=== PATIENT | female | born 1990 | race African-American/Black ===

== ENCOUNTER 2016-10-29 08:13 | Emergency (ER) | payer SELFPAY ==
--- NOTE | 2016-10-29 10:14 | ER Document Report ---
ED General - General Chief Complaint: Cough Stated Complaint: COUGH TRAVEL OUTSIDE OF THE [place] IN LAST 30 DAYS: No - HPI Patient complains to provider of: cough Notes: Patient coming in for evaluation of cough states cough ongoing for last 3 days denies any recent travel denies any sick contacts or antibiotics. Patient denies fevers chills nausea vomiting diarrhea denies any production to the cough. - Related Data Allergies/Adverse Reactions: No Known Allergies Allergy (Verified 10/29/16 08:18) Past Medical History - Social History Smoking Status: Never Smoker Chew tobacco use (# tins/day): No Frequency of alcohol use: None Drug Abuse: None Family History: DM, Hypertension, Malignancy Patient has suicidal ideation: No Patient has homicidal ideation: No Pulmonary Medical History: Reports: Hx Pneumonia Renal/ Medical History: Denies: Hx Peritoneal Dialysis Skin Medical History: Reports Hx Cellulitis Surgical Hx: Negative - Immunizations Hx Diphtheria, Pertussis, Tetanus Vaccination: No Review of Systems - Review of Systems Constitutional: No symptoms reported EENT: No symptoms reported Cardiovascular: No symptoms reported Respiratory: Cough Gastrointestinal: No symptoms reported Genitourinary: No symptoms reported Female Genitourinary: No symptoms reported Musculoskeletal: No symptoms reported Skin: No symptoms reported Hematologic/Lymphatic: No symptoms reported Neurological/Psychological: No symptoms reported -: Yes All other systems reviewed and negative Physical Exam - Vital signs Vitals: Temp Pulse Resp BP Pulse Ox 98.2 F 83 18 130/90 H 99 10/29/16 08:19 10/29/16 08:19 10/29/16 08:19 10/29/16 08:19 10/29/16 08:19 Interpretation: Normal - General General appearance: Appears well, Alert - HEENT Head: Normocephalic, Atraumatic Eyes: Normal Pupils: PERRL - Respiratory Respiratory status: No respiratory distress Chest status: Nontender Breath sounds: Normal Chest palpation: Normal - Cardiovascular Rhythm: Regular Heart sounds: Normal auscultation Murmur: No - Abdominal Inspection: Normal Distension: No distension Bowel sounds: Normal Tenderness: Nontender Organomegaly: No organomegaly - Back Back: Normal, Nontender - Extremities General upper extremity: Normal inspection, Nontender, Normal color, Normal ROM , Normal temperature General lower extremity: Normal inspection, Nontender, Normal color, Normal ROM , Normal temperature, Normal weight bearing. No: Gali's sign - Neurological Neuro grossly intact: Yes Cognition: Normal Orientation: AAOx4 [place] Coma Scale Eye Opening: Spontaneous [place] Coma Scale Verbal: Oriented [place] Coma Scale Motor: Obeys Commands [place] Coma Scale Total: 15 Speech: Normal Motor strength normal: LUE, RUE, LLE, RLE Sensory: Normal - Psychological Associated symptoms: Normal affect, Normal mood - Skin Skin Temperature: Warm Skin Moisture: Dry Skin Color: Normal Course - Re-evaluation Re-evalutation: 10/29/16 15:09 Patient's evaluation shows no signs or symptoms of infection. Will start patient on steroids for it with cough patient was educated about use of honey for cough suppression. More likely patient has a viral or allergic reason for her cough patient was encouraged to take a antihistamine - Vital Signs Vital signs: Temp Pulse Resp BP Pulse Ox 97.9 F 72 20 123/82 98 10/29/16 10:27 10/29/16 10:27 10/29/16 10:27 10/29/16 10:27 10/29/16 10:27 Discharge - Discharge Clinical Impression: Cough Condition: Good Disposition: HOME, SELF-CARE Additional Instructions: Examination today reveals no signs of pneumonia or infection requiring antibiotics. More likely her cough is due to weather changes or allergens. To aid in your cough we will start you on a low dose of prednisone for the next few days I also recommend taking an antihistamine. You may take this over-the- counter. Also recommend trying honey as a cough suppressant he may use honey throughout the day to have suture throat may with cough suppression. You may also ask her local pharmacist about [id number] cough medications. Prescriptions: Prednisone [Deltasone 20 mg Tablet] 2 tab PO DAILY 5 Days Forms: Return to Work Referrals: EHSAN STEARNS MD [Primary Care Provider] - Follow up as needed
[2016-10-29 10:28] VITALS: BP 123/82
== END 2016-10-29 10:37 | disposition home or self-care (01) ==
LOC: ER 08:13
DX: R05 Cough (principal)
CPT/HCPCS: 71020; 99283

== ENCOUNTER 2017-04-10 18:18 | Emergency (ER) | payer SELFPAY ==
[2017-04-10 18:24] VITALS: BP 141/64
--- NOTE | 2017-04-10 19:08 | ER Document Report ---
HPI - HPI Patient complains to provider of: lump under left arm Onset: Other Onset/Duration: Gradual Quality of pain: Throbbing Severity: Severe Pain Level: 5 Context: Patient states she has a history of cysts under both axilla. This one started on Thursday, seems to be getting a little larger, and is painful. No drainage. Associated Symptoms: None Exacerbated by: Movement Relieved by: Denies Similar symptoms previously: Yes Recently seen / treated by doctor: No - ROS ROS below otherwise negative: Yes Systems Reviewed and Negative: Yes All other systems reviewed and negative - CONSTITUTIONAL Constitutional: DENIES: Fever - EENT EENT: DENIES: Congestion - NEURO Neurology: DENIES: Headache - CARDIOVASCULAR Cardiovascular: DENIES: Chest pain - RESPIRATORY Respiratory: DENIES: Trouble Breathing - GASTROINTESTINAL Gastrointestinal: DENIES: Abdominal Pain - REPRODUCTIVE Reproductive: DENIES: : - MUSCULOSKELETAL Musculoskeletal: REPORTS: Extremity pain - Lump under left arm - DERM Skin Problems: Rash Past Medical History - General Information source: Patient - Social History Smoking Status: Never Smoker Frequency of alcohol use: None Drug Abuse: None Lives with: Family Family History: DM, Hypertension, Malignancy Pulmonary Medical History: Reports: Hx Pneumonia Skin Medical History: Reports Hx Cellulitis Surgical Hx: Negative - Immunizations Hx Diphtheria, Pertussis, Tetanus Vaccination: No Vertical Provider Document - CONSTITUTIONAL Agree With Documented VS: Yes Exam Limitations: No Limitations General Appearance: WD/WN, Mild Distress - INFECTION CONTROL TRAVEL OUTSIDE OF THE [place] IN LAST 30 DAYS: No - HEENT HEENT: Atraumatic, Normocephalic - RESPIRATORY Respiratory: Breath Sounds Normal, No Respiratory Distress O2 Sat by Pulse Oximetry: 99 - CARDIOVASCULAR Cardiovascular: Regular Rate, Regular Rhythm - GI/ABDOMEN Gastrointestinal: Abdomen Soft - MUSCULOSKELETAL/EXTREMETIES Musculoskeletal/Extremeties: MAEW, Tender - Hard lump under left axilla. - NEURO Level of Consciousness: Awake, Alert, Appropriate - DERM Integumentary: Warm, Dry Notes: Cyst under left axilla is hard on palpation. No erythema or signs of infection. No drainage. Course - Vital Signs Vital signs: Temp Pulse Resp BP Pulse Ox 98.3 F 90 16 141/64 H 99 04/10/17 18:23 04/10/17 18:23 04/10/17 18:23 04/10/17 18:23 04/10/17 18:23 Discharge - Discharge Clinical Impression: Cyst Condition: Good Disposition: HOME, SELF-CARE Additional Instructions: Antibiotics as prescribed [id number] Motrin 3 times a day as needed for pain warm compresses Follow-up with your doctor for recheck, or return if worsens. Prescriptions: Cephalexin [Cephalexin 500 MG Capsule] 1 cap PO QID #28 capsule Hydrocodone/Acetaminophen [[place] 5-325 mg Tablet] 1 tab PO PRN PRN #15 tablet PRN Reason: Sulfamethoxazole/Trimethoprim [Bactrim Ds Tablet] 1 each PO BID #20 tablet
[2017-04-10] MEDS ORDERED: HYDROCODONE/ACETAMINOPHEN 5-325 MG TABLET PO ONE (19:10)
== END 2017-04-10 19:20 | disposition home or self-care (01) ==
LOC: ER 18:18
DX: L72.8 Other follicular cysts of the skin and subcutaneous tissue (principal); R22.32 Localized swelling, mass and lump, left upper limb
CPT/HCPCS: 99282

== ENCOUNTER 2017-04-23 08:53 | Emergency (ER) | payer SELFPAY ==
[2017-04-23 08:59] VITALS: BP 131/74
[2017-04-23] MEDS ORDERED: FAMOTIDINE 20 MG TABLET PO ONE (09:19)
[2017-04-23] MEDS ORDERED: DIPHENHYDRAMINE HCL 50 MG CAPSULE PO ONE (09:19)
[2017-04-23] MEDS ORDERED: PREDNISONE 20 MG TABLET PO ONE (09:19)
--- NOTE | 2017-04-23 09:21 | ER Document Report ---
HPI - HPI Patient complains to provider of: Skin rash Onset: Yesterday Onset/Duration: Gradual Quality of pain: Burning Pain Level: 4 Context: Patient complains of pruritic skin rash that started yesterday. Patient denies any new foods, lotions or detergents. Patient denies any difficulty breathing or swallowing. Associated Symptoms: Other - Skin rash Exacerbated by: Denies Relieved by: Denies Similar symptoms previously: No Recently seen / treated by doctor: No - ROS ROS below otherwise negative: Yes Systems Reviewed and Negative: Yes All other systems reviewed and negative - CONSTITUTIONAL Constitutional: DENIES: Fever - RESPIRATORY Respiratory: DENIES: Coughing - GASTROINTESTINAL Gastrointestinal: DENIES: Nausea, Patient vomiting - REPRODUCTIVE Reproductive: DENIES: : - DERM Skin Color: Normal Skin Problems: Rash Past Medical History - General Information source: Patient - Social History Smoking Status: Never Smoker Frequency of alcohol use: None Drug Abuse: None Occupation: Daycare provider Family History: DM, Hypertension, Malignancy Pulmonary Medical History: Reports: Hx Pneumonia Renal/ Medical History: Denies: Hx Peritoneal Dialysis Skin Medical History: Reports Hx Cellulitis Surgical Hx: Negative - Immunizations Hx Diphtheria, Pertussis, Tetanus Vaccination: No Vertical Provider Document - CONSTITUTIONAL Agree With Documented VS: Yes Exam Limitations: No Limitations General Appearance: WD/WN, No Apparent Distress - INFECTION CONTROL TRAVEL OUTSIDE OF THE [place] IN LAST 30 DAYS: No - HEENT HEENT: Atraumatic, Normal ENT Exam, Normocephalic Notes: No angioedema - NECK Neck: Normal Inspection, Supple - RESPIRATORY Respiratory: Breath Sounds Normal, No Respiratory Distress, Chest Non-Tender O2 Sat by Pulse Oximetry: 100 - CARDIOVASCULAR Cardiovascular: Regular Rate, Regular Rhythm, No Murmur - MUSCULOSKELETAL/EXTREMETIES Musculoskeletal/Extremeties: MAEW - NEURO Level of Consciousness: Awake, Alert, Appropriate Motor/Sensory: No Motor Deficit - DERM Integumentary: Warm, Dry, Rash - Scattered erythematous rash concerning for urticaria distributed to trunk, extremities and face Course - Vital Signs Vital signs: Temp Pulse Resp BP Pulse Ox 97.3 F 79 16 131/74 H 100 04/23/17 08:58 04/23/17 08:58 04/23/17 08:58 04/23/17 08:58 04/23/17 08:58 Discharge - Discharge Clinical Impression: Allergic reaction Qualifiers: Encounter type: initial encounter Qualified Code(s): T78.40XA - Allergy, unspecified, initial encounter Condition: Stable Disposition: HOME, SELF-CARE Additional Instructions: Return immediately for any new or worsening symptoms Followup with your primary care provider, call tomorrow to make a followup appointment Take Benadryl [id number] to help with her symptoms ACUTE ALLERGIC REACTION: Your symptoms are due to an allergic reaction. Allergy can cause hives, swelling of the hands, feet, and face, hoarseness, and difficulty swallowing or breathing. It may be due to exposure to medication, animal dander, foods, infection, or insect bites. Medication is a common cause, even when prior use of this same medication caused no problems. Acute treatment may include adrenalin and antihistamines. Usually, the specific allergic agent can't be identified unless repeated episodes occur. Home treatment includes the following: (1) Stop any suspicious medications. This will be discussed with you. (2) Oral antihistamines for the next four to five days. Example, diphenhydramine (Benadryl) every four hours. (3) You may also use cimetidine (Tagamet), ranitidine (Zantac), or famotidine ( Pepcid) every four hours if diphenhydramine is not controlling itching and hives. (4) Avoid aspirin until the hives completely disappear. (5) Avoid hot baths or showers until the hives are completely gone. Call the doctor if faintness, difficulty swallowing, tightness in the chest , or wheezing occurs. STEROID MEDICATION: You have been given a medicine of the cortisone/steroid class. This medication is used to control inflammation or allergy. It is usually only given for a short period of time, until the acute process subsides. There are usually no side effects from short-term use of cortisone-like medications. Some persons feel an increased sense of well-being and are not sleepy at bedtime. Long-term use of cortisone medications is best avoided, unless required for a severe condition. If your condition does not remit, or relapses after the course of corticosteroid medication, you should consult your physician. ACID-SUPPRESSING MEDICATION: You have a prescription for medicine which reduces the stomach's secretion of acid. Examples include Zantac, Tagament, and Pepcid. These drugs are often used to allow healing of ulcers or esophagitis. They may be needed to prevent recurrence of ulcers in some patients, or to prevent damage from acid reflux in the esophagus. Take all medication as prescribed, even after the pain is gone. Regular antacids may be added as needed if you have symptoms while taking this medicine. These medications sometimes are prescribed for allergic reactions because they have anti-histaminic effects and relieve the rash and itching of the reaction. There are usually no side effects from this medication. But, in rare cases and particularly in the elderly, serious problems can occur. Contact your doctor if there is fever, rash, hallucinations, confusion, or unusual bruising. Contact your doctor at once if you develop lightheadedness, black or bloody stool, or bloody vomitus. ANTIHISTAMINES: An antihistamine has been given and/or prescribed to control your symptoms. Antihistamines are used for many reasons, including itching, watering eyes, runny nose, allergic swelling, hives, and insect stings. Antihistamines may cause drowsiness, especially with the first dose. Do not operate machinery or drive while under the effects of the medication. Other common side effects include dry mouth and eyes. In older persons, antihistamines can occasionally cause urinary retention, constipation, and trouble focusing the eyes. Do not combine the medication with alcohol, or with any other medication without talking to your doctor. USE OF DIPHENHYDRAMINE: The use of diphenhydramine (Benadryl) has been recommended to control allergic symptoms. The 25 mg strength is available over- the-counter, as well as the elixir. This antihistamine is used for many symptoms. It's useful for itching, watering eyes and nose, allergic swelling, hives, and insect stings. The medication can be repeated four times daily. Age Elixir (12.5 mg/tsp) 25 mg pill 2-3 yr 1/2 tsp 4-8 yr 1 tsp 9-14 yr 2 tsp one tab adult 1-2 tabs Antihistamines may cause drowsiness, especially with the first dose. Do not operate machinery or drive while under the effects of the medication. Do not combine the medication with alcohol, or with any other medication without talking to your doctor. FOLLOW-UP CARE: If you have been referred to a physician for follow-up care, call the physician s office for an appointment as you were instructed or within the next two days. If you experience worsening or a significant change in your symptoms, notify the physician immediately or return to the Emergency Department at any time for re-evaluation. Prescriptions: Famotidine [Pepcid 20 mg Tablet] 20 mg PO BID #12 tablet Prednisone [Deltasone 20 mg Tablet] 3 tab PO DAILY 4 Days tablet Forms: Return to Work Referrals: [facility] [Provider Group] - Follow up as needed
== END 2017-04-23 09:51 | disposition home or self-care (01) ==
LOC: ER 08:53
DX: T78.40XA Allergy, unspecified, initial encounter (principal); R21 Rash and other nonspecific skin eruption; X58.XXXA Exposure to other specified factors, initial encounter
CPT/HCPCS: 99282; J7512

== ENCOUNTER 2017-07-03 14:17 | Emergency (ER) | payer MEDICAID ==
[2017-07-03] MEDS ORDERED: IBUPROFEN 600 MG TABLET PO ONE (14:32)
--- NOTE | 2017-07-03 14:34 | ER Document Report ---
ED Medical Screen (RME) - General Chief Complaint: Abdominal Pain Stated Complaint: STOMACH PAIN Time Seen by Provider: 07/03/17 14:31 Mode of Arrival: Wheelchair Information source: Patient TRAVEL OUTSIDE OF THE [place] IN LAST 30 DAYS: No - HPI Patient complains to provider of: Pelvic pain Onset: Other - pt is a approx 14 weeks along seen here earlier this week and found to have ovarian cyst. States pain has gotten worse and is having some N and Vom. Has need spoken to her OB about this - Related Data Allergies/Adverse Reactions: No Known Allergies Allergy (Verified 07/03/17 14:29) Past Medical History Pulmonary Medical History: Reports: Hx Pneumonia Renal/ Medical History: Denies: Hx Peritoneal Dialysis Skin Medical History: Reports Hx Cellulitis - Immunizations Hx Diphtheria, Pertussis, Tetanus Vaccination: No Physical Exam - Vital signs Vitals: Temp Pulse Resp BP Pulse Ox 98.2 F 100 20 126/90 H 99 07/03/17 14:23 07/03/17 14:23 07/03/17 14:23 07/03/17 14:23 07/03/17 14:23 Course - Vital Signs Vital signs: Temp Pulse Resp BP Pulse Ox 98.2 F 100 20 126/90 H 99 07/03/17 14:23 07/03/17 14:23 07/03/17 14:23 07/03/17 14:23 07/03/17 14:23
[2017-07-03 15:27] LABS: APPEARANCE,URINE CLOUDY; BILIRUBIN,URINE NEGATIVE (NEGATIVE); GLUCOSE, URINE NEGATIVE (NEGATIVE); KETONES,URINE 80 mg/dL (NEGATIVE); LEUKOCYTE ESTERASE,URINE TRACE (NEGATIVE); NITRITE,URINE NEGATIVE (NEGATIVE); PROTEIN,URINE 30 mg/dL (NEGATIVE); URINE SPECIFIC GRAVITY 1.035
[2017-07-03 15:29] LABS: ABSOLUTE LYMPHOCYTES (AUTO) 2.1 10^3/uL (0.5-4.7); ABSOLUTE MONOCYTES (AUTO) 0.5 10^3/uL (0.1-1.4); ABSOLUTE NEUT (AUTO) 7.1 10^3/uL (1.7-8.2); BASOPHILS % (AUTO) 0.5 % (0-2); EOSINOPHILS % (AUTO) 0.5 % (0-6); HEMATOCRIT 40.5 % (36.0-47.0); HGB HCT DIFFERENCE 1.5; MEAN CORPUSCULAR HEMOGLOBIN 29.9 pg (27.0-33.4); MEAN CORPUSCULAR HGB CONC 34.5 g/dL (32.0-36.0); MEAN CORPUSCULAR VOLUME 87 fl (80-97); MONOCYTES % (AUTO) 5.4 % (3-13); RED BLOOD COUNT 4.67 10^6/uL (3.72-5.28); RED CELL DISTRIBUTION WIDTH 13.7 % (11.5-14.0); SEGMENTED NEUTROPHILS % (AUTO) 72.6 % (42-78); WHITE BLOOD COUNT 9.8 10^3/uL (4.0-10.5)
[2017-07-03 15:52] LABS: ALANINE AMINOTRANSFERASE 36 U/L (9-52); ALBUMIN 4.8 g/dL (3.5-5.0); ALKALINE PHOSPHATASE 62 U/L (38-126); ANION GAP 13 (5-19); ASPARTATE AMINO TRANSFERASE 16 U/L (14-36); BILIRUBIN,DIRECT 0.3 mg/dL (0.0-0.4); BILIRUBIN,TOTAL 0.8 mg/dL (0.2-1.3); BLOOD UREA NITROGEN 11 mg/dL (7-20); CALCIUM 10.1 mg/dL (8.4-10.2); CARBON DIOXIDE 24 mmol/L (22-30); CHLORIDE 102 mmol/L (98-107); CREATININE RESULT 0.71 mg/dL (0.52-1.25); GLUCOSE 85 mg/dL (75-110); SODIUM 139.4 mmol/L (137-145); TOTAL PROTEIN 8.4 g/dL (6.3-8.2)
[2017-07-03] MEDS ORDERED: MORPHINE SULFATE 10 MG/ML INJ IV ONE (16:02)
--- NOTE | 2017-07-03 16:02 | ER Document Report ---
ED GI/ - General Chief Complaint: Abdominal Pain Stated Complaint: STOMACH PAIN Time Seen by Provider: 07/03/17 14:31 Mode of Arrival: Wheelchair Information source: Patient TRAVEL OUTSIDE OF THE [place] IN LAST 30 DAYS: No - HPI Patient complains to provider of: Pelvic pain Onset: Other - 5 days Timing/Duration: Persistent Quality of pain: Achy, Dull, Fullness Severity at maximum: Moderate Severity in ED: Moderate Location: Pelvis Vaginal bleeding (Compared to normal period): None Menstrual period history: Associated symptoms: Nausea, Vomiting Exacerbated by: Denies Relieved by: Denies Similar symptoms previously: Yes Recently seen / treated by doctor: Yes Notes: 07/03/17 19:01 Patient is a 26-year-old female presenting to the emergency room complaining of ongoing pelvic pain since Thursday, she is approximately 14 weeks , she is with no previous related complications, she has been seen at [facility] but not since her most recent visit to the emergency room where she was diagnosed with a 5 cm cyst on her left ovary, she was prescribed Percocet and Zofran and advised to follow-up at [facility] as an outpatient, she did not have the chance to do that yet and states that the Percocet makes her sick and she is unable to tolerate it , she reports some nausea and vomiting, denies any pain or injury, no vaginal bleeding or discharge, denies dysuria, no fever or chills - Related Data Allergies/Adverse Reactions: No Known Allergies Allergy (Verified 07/03/17 14:29) Past Medical History - General Information source: Patient - Social History Smoking Status: Never Smoker Family History: DM, Hypertension, Malignancy Patient has suicidal ideation: No Patient has homicidal ideation: No Pulmonary Medical History: Reports: Hx Pneumonia Renal/ Medical History: Denies: Hx Peritoneal Dialysis Skin Medical History: Reports Hx Cellulitis - Immunizations Hx Diphtheria, Pertussis, Tetanus Vaccination: No Review of Systems - Review of Systems Constitutional: No symptoms reported EENT: No symptoms reported Cardiovascular: No symptoms reported Respiratory: No symptoms reported Gastrointestinal: No symptoms reported Genitourinary: No symptoms reported Female Genitourinary: See HPI Musculoskeletal: No symptoms reported Skin: No symptoms reported Hematologic/Lymphatic: No symptoms reported Neurological/Psychological: No symptoms reported -: Yes All other systems reviewed and negative Physical Exam - Vital signs Vitals: Temp Pulse Resp BP Pulse Ox 98.2 F 100 20 126/90 H 99 07/03/17 14:23 07/03/17 14:23 07/03/17 14:23 07/03/17 14:23 07/03/17 14:23 Interpretation: Normal - General General appearance: Appears well, Alert - HEENT Head: Normocephalic, Atraumatic Eyes: Normal Pupils: PERRL - Respiratory Respiratory status: No respiratory distress Chest status: Nontender Breath sounds: Normal Chest palpation: Normal - Cardiovascular Rhythm: Regular Heart sounds: Normal auscultation Murmur: No - Abdominal Inspection: Gravid female Distension: No distension Bowel sounds: Normal Tenderness: Tender Organomegaly: No organomegaly - Back Back: Normal, Nontender - Extremities General upper extremity: Normal inspection, Nontender, Normal color, Normal ROM , Normal temperature General lower extremity: Normal inspection, Nontender, Normal color, Normal ROM , Normal temperature, Normal weight bearing. No: Gali's sign - Neurological Neuro grossly intact: Yes Cognition: Normal Orientation: AAOx4 [place] Coma Scale Eye Opening: Spontaneous [place] Coma Scale Verbal: Oriented [place] Coma Scale Motor: Obeys Commands [place] Coma Scale Total: 15 Speech: Normal Motor strength normal: LUE, RUE, LLE, RLE Sensory: Normal - Psychological Associated symptoms: Normal affect, Normal mood - Skin Skin Temperature: Warm Skin Moisture: Dry Skin Color: Normal Course - Re-evaluation Re-evalutation: 07/03/17 23:58 Lab and imaging findings were discussed with patient at bedside, ultrasound report today shows a 5 cm cyst on the right ovary, however 3 days ago the ultrasound reported to be on the left ovary, I did place a call to the generator technician to confirm that she was in fact marking the proper side, which she confirms, I did then place a call to the radiologist and asked her to review both studies to confirm which side the ovary had a cyst, regardless symptoms are likely related to increasing girth from , as well as sizable ovarian cyst, patient was provided with additional pain medication, and instructions to follow-up at [facility] which she has not yet done since being seen in this department 3 days ago, patient was advised to take nausea medication 20-30 minutes prior to taking pain medication to reduce her risk of getting upset stomach from the pain medication, she was advised to return if any additional concerns, patient acknowledges understanding and agreement with this plan - Vital Signs Vital signs: Temp Pulse Resp BP Pulse Ox 98.5 F 85 22 H 125/74 100 07/03/17 19:08 07/03/17 19:08 07/03/17 19:08 07/03/17 19:08 07/03/17 19:08 - Laboratory Result Diagrams: 07/03/17 14:50 07/03/17 14:50 Laboratory results interpreted by me: 07/03/17 07/03/17 14:46 14:50 Total Protein 8.4 H Beta HCG, Quant 44351.00 H Urine Protein 30 H Urine Ketones 80 H Urine Urobilinogen 2.0 H Ur Leukocyte Esterase TRACE H Urine Ascorbic Acid 40 H - Diagnostic Test Radiology reviewed: Image reviewed, Reports reviewed Discharge - Discharge Clinical Impression: Pelvic pain affecting Qualifiers: Trimester: second trimester Qualified Code(s): O26.892 - Other specified related conditions, second trimester UTI (urinary tract infection) Qualifiers: Urinary tract infection type: acute cystitis Hematuria presence: without hematuria Qualified Code(s): N30.00 - Acute cystitis without hematuria Ovarian cyst Qualifiers: Laterality: left Qualified Code(s): N83.202 - Unspecified ovarian cyst, left side Condition: Stable Disposition: HOME, SELF-CARE Instructions: Nitrofurantoin ([facility]), Urinary Tract Infection ([facility]) Additional Instructions: Follow up with your primary care provider and [employer] in one to 2 days. Return to the emergency room immediately if symptoms worsen or any additional concerns. Prescriptions: Metoclopramide HCl [Reglan 10 mg Tablet] 1 - 2 tab PO ASDIR PRN #25 tablet PRN Reason: Nitrofurantoin/Nitrofuran Mac [Macrobid 100 mg Capsule] 100 mg PO BID #20 capsule Referrals: EHSAN STEARNS MD [Primary Care Provider] - Follow up as needed
--- NOTE | 2017-07-03 18:08 | RADIOLOGY REPORT (SQ) ---
EXAM DESCRIPTION: U/S OB LIMITED COMPLETED DATE/TIME: 07/03/2017 5:54 pm REASON FOR STUDY: worsening pelvic pain COMPARISON: 08/14/2016 TECHNIQUE: Limited transabdominal grayscale ultrasound for evaluation of specific requested obstetri hemanth parameters. LIMITATIONS: None. FINDINGS: CERVICAL LENGTH: 3.3 cm Closed. MARIPOSA: Subjectively adequate. Single deepest pocket 4.6 cm. FHR: 155 beats per minute. PRESENTATION: Cephalic. OTHER: A 5 cm hypoechoic focus within the right adnexa is favored to represent residual corpus luteum , although an hemorrhagic cyst may have a similar appearance. IMPRESSION: LIMITED OBSTETRICAL ULTRASOUND WITH MEASURED PARAMETERS DELINEATED ABOVE. Trimester of : Third trimester - 28 weeks to delivery. TECHNICAL DOCUMENTATION: JOB ID: [id number] [employer]- All Rights Reserved
[2017-07-03] MEDS ORDERED: NITROFURANTOIN MONOHYD/M-CRYST 100 MG CAPSULE PO ONE (18:25)
[2017-07-03 19:11] VITALS: BP 125/74
== END 2017-07-03 19:11 | disposition home or self-care (01) ==
LOC: ER 14:17
DX: O26.892 Other specified pregnancy related conditions, second trimester (principal); N30.00 Acute cystitis without hematuria; O34.82 Maternal care for other abnormalities of pelvic organs, second trimester; N83.202 Unspecified ovarian cyst, left side; R10.2 Pelvic and perineal pain; Z3A.14 14 weeks gestation of pregnancy
CPT/HCPCS: 99284; 96374; 36415; 87086; 84702; 85025; 80053; 81001; 76815; J3490 ×2; J2270; J8499

== ENCOUNTER 2017-07-31 19:01 | Emergency (ER) | payer MEDICAID ==
[2017-07-31] MEDS ORDERED: ACETAMINOPHEN 325 MG TABLET PO ONE (20:01)
[2017-07-31] MEDS ORDERED: ONDANSETRON 4 MG TAB.RAPDIS PO ONE (20:04)
--- NOTE | 2017-07-31 20:04 | ER Document Report ---
ED Medical Screen (RME) - General Chief Complaint: Abdominal Pain Stated Complaint: ABDOMINAL PAIN Time Seen by Provider: 07/31/17 19:55 Notes: 26-year-old female approximately 19 weeks gestation per her report here with complaints of lower abdominal pain and vomiting that started several hours ago. She states that the pain feels the same as the pain she had last month when she was seen here in the emergency department. At that time, her ultrasound showed a 5.2 cm left ovarian cyst but no torsion however there was concern for increased risk of torsion. She has no prior history of torsion. She took some Tylenol however it has been 5 hours since last dose. Denies vaginal bleeding discharge fevers chills diarrhea. EXAM Mild to moderate right greater than left lower quadrant tenderness No peritoneal signs TRAVEL OUTSIDE OF THE [place] IN LAST 30 DAYS: No - Related Data Allergies/Adverse Reactions: No Known Allergies Allergy (Verified 07/31/17 19:03) Past Medical History - Social History Chew tobacco use (# tins/day): No Frequency of alcohol use: None Drug Abuse: None Pulmonary Medical History: Reports: Hx Pneumonia Renal/ Medical History: Denies: Hx Peritoneal Dialysis Skin Medical History: Reports Hx Cellulitis - Immunizations Hx Diphtheria, Pertussis, Tetanus Vaccination: No Physical Exam - Vital signs Vitals: Temp Pulse Resp BP Pulse Ox 98.6 F 91 16 126/76 H 98 07/31/17 19:33 07/31/17 19:33 07/31/17 19:33 07/31/17 19:33 07/31/17 19:33 Course - Vital Signs Vital signs: Temp Pulse Resp BP Pulse Ox 98.6 F 91 16 126/76 H 98 07/31/17 19:33 07/31/17 19:33 07/31/17 19:33 07/31/17 19:33 07/31/17 19:33
--- NOTE | 2017-07-31 21:06 | RADIOLOGY REPORT (SQ) ---
EXAM DESCRIPTION: U/S NON OB PEL TV W/DOPPLER COMPLETED DATE/TIME: 07/31/2017 8:42 pm REASON FOR STUDY: lower abd pain and 5cm cyst; eval for torsion COMPARISON: Multiple prior ultrasounds TECHNIQUE: Dynamic and static grayscale images acquired of the pelvis via transvaginal approach and recorded on PACS. Additional selected color Doppler and spectral images recorded. LIMITATIONS: None. FINDINGS: UTERUS: Gravid ENDOMETRIAL STRIPE: Not applicable CERVIX: No nabothian cysts. RIGHT OVARY: Not visualized. LEFT OVARY: 5 cm cyst. LEFT OVARY DOPPLER: Normal arterial vascular flow without evidence for torsion. FREE FLUID: None noted. OTHER: heart rate 144 beats per minute. Vertex position. MEASUREMENTS: UTERUS: Gravid ENDOMETRIAL STRIPE: Not applicable RIGHT OVARY: Not visualized. LEFT OVARY: 7.2 x 5.86.0 cm IMPRESSION: Large left ovarian cyst. No evidence for torsion. TECHNICAL DOCUMENTATION: JOB ID: [id number] [employer]- All Rights Reserved
[2017-07-31] MEDS ORDERED: METOCLOPRAMIDE HCL INJ/PF 10 MG/2 ML SDV IV ONE (22:20)
[2017-07-31] MEDS: NORMAL SALINE 1000 ML 1,000 ML IV PRN ×2 (22:36→23:52)
[2017-07-31 23:11] LABS: ABSOLUTE EOSINOPHILS # (AUTO) 0.1 10^3/uL (0.0-0.6); ABSOLUTE LYMPHOCYTES (AUTO) 2.2 10^3/uL (0.5-4.7); ABSOLUTE MONOCYTES (AUTO) 0.5 10^3/uL (0.1-1.4); ABSOLUTE NEUT (AUTO) 6.6 10^3/uL (1.7-8.2); BASOPHILS % (AUTO) 0.4 % (0-2); HEMATOCRIT 36.3 % (36.0-47.0); HEMOGLOBIN 12.4 g/dL (12.0-15.5); HGB HCT DIFFERENCE 0.9; LYMPHOCYTES % (AUTO) 23.6 % (13-45); MEAN CORPUSCULAR HEMOGLOBIN 30.2 pg (27.0-33.4); MEAN CORPUSCULAR HGB CONC 34.2 g/dL (32.0-36.0); MEAN CORPUSCULAR VOLUME 88 fl (80-97); MONOCYTES % (AUTO) 5.1 % (3-13); RED BLOOD COUNT 4.12 10^6/uL (3.72-5.28); RED CELL DISTRIBUTION WIDTH 13.4 % (11.5-14.0); SEGMENTED NEUTROPHILS % (AUTO) 69.9 % (42-78); WHITE BLOOD COUNT 9.4 10^3/uL (4.0-10.5)
[2017-07-31 23:18] LABS: APPEARANCE,URINE CLOUDY; BILIRUBIN,URINE NEGATIVE (NEGATIVE); GLUCOSE, URINE NEGATIVE (NEGATIVE); KETONES,URINE NEGATIVE (NEGATIVE); LEUKOCYTE ESTERASE,URINE SMALL (NEGATIVE); NITRITE,URINE NEGATIVE (NEGATIVE); PROTEIN,URINE 30 mg/dL (NEGATIVE); URINE SPECIFIC GRAVITY 1.036
[2017-07-31 23:23] LABS: ANION GAP 10 (5-19); BLOOD UREA NITROGEN 14 mg/dL (7-20); CALCIUM 9.2 mg/dL (8.4-10.2); CARBON DIOXIDE 25 mmol/L (22-30); CHLORIDE 103 mmol/L (98-107); CREATININE RESULT 0.81 mg/dL (0.52-1.25); GLUCOSE 89 mg/dL (75-110); POTASSIUM 3.9 mmol/L (3.6-5.0); SODIUM 137.8 mmol/L (137-145)
[2017-07-31] MEDS ORDERED: GLYCERIN (ADULT) SUPP.RECT PR ONE (23:58)
--- NOTE | 2017-08-01 | ER Document Report ---
ED General - General Chief Complaint: Abdominal Pain Stated Complaint: ABDOMINAL PAIN Time Seen by Provider: 07/31/17 19:55 TRAVEL OUTSIDE OF THE [place] IN LAST 30 DAYS: No - HPI Patient complains to provider of: Lower abdominal pain Notes: Patient coming in for evaluation lower abdominal pain. Patient states ongoing starting this morning. Patient states nauseous associated with the pain. Patient is approximately 19-20 weeks . Patient is a . Denies any vaginal discharge or vaginal bleeding. Patient states most of the pain to the lower abdomen right greater than left. Patient states [facility]. Patient states she is currently on nausea medication for the however the nausea today is worse than it has been in the past. Denies any fevers chills diarrhea chest pain. Denies any recent travel or recent antibiotics. Patient is resting comfortably upon my evaluation patient does admit that she has not had a bowel movement within 1 week. Patient states this is normal for her. - Related Data Allergies/Adverse Reactions: No Known Allergies Allergy (Verified 07/31/17 19:03) Past Medical History - Social History Smoking Status: Never Smoker Chew tobacco use (# tins/day): No Frequency of alcohol use: None Drug Abuse: None Family History: DM, Hypertension, Malignancy Patient has suicidal ideation: No Patient has homicidal ideation: No Pulmonary Medical History: Reports: Hx Pneumonia Renal/ Medical History: Denies: Hx Peritoneal Dialysis Skin Medical History: Reports Hx Cellulitis - Immunizations Hx Diphtheria, Pertussis, Tetanus Vaccination: No Review of Systems - Review of Systems Constitutional: No symptoms reported EENT: No symptoms reported Cardiovascular: No symptoms reported Respiratory: No symptoms reported Gastrointestinal: Abdominal pain Genitourinary: No symptoms reported Female Genitourinary: No symptoms reported Musculoskeletal: No symptoms reported Skin: No symptoms reported Hematologic/Lymphatic: No symptoms reported Neurological/Psychological: No symptoms reported Physical Exam - Vital signs Vitals: Temp Pulse Resp BP Pulse Ox 98.6 F 91 16 126/76 H 98 07/31/17 19:33 07/31/17 19:33 07/31/17 19:33 07/31/17 19:33 07/31/17 19:33 Interpretation: Normal - General General appearance: Appears well, Alert - HEENT Head: Normocephalic, Atraumatic Eyes: Normal Pupils: PERRL - Respiratory Respiratory status: No respiratory distress Chest status: Nontender Breath sounds: Normal Chest palpation: Normal - Cardiovascular Rhythm: Regular Heart sounds: Normal auscultation Murmur: No - Abdominal Inspection: Normal Distension: No distension Bowel sounds: Normal Tenderness: Tender - Mild diffuse lower tenderness. No guarding or rebound Organomegaly: No organomegaly - Back Back: Normal, Nontender - Extremities General upper extremity: Normal inspection, Nontender, Normal color, Normal ROM , Normal temperature General lower extremity: Normal inspection, Nontender, Normal color, Normal ROM , Normal temperature, Normal weight bearing. No: Gali's sign - Neurological Neuro grossly intact: Yes Cognition: Normal Orientation: AAOx4 Lud[place] Coma Scale Eye Opening: Spontaneous Chantal Coma Scale Verbal: Oriented Lud[place] Coma Scale Motor: Obeys Commands Chantal Coma Scale Total: 15 Speech: Normal Motor strength normal: LUE, RUE, LLE, RLE Sensory: Normal - Psychological Associated symptoms: Normal affect, Normal mood - Skin Skin Temperature: Warm Skin Moisture: Dry Skin Color: Normal Course - Re-evaluation Re-evalutation: 08/01/17 00:52 The patient presents with abdominal pain without signs of peritonitis or other life-threatening or serious etiology. The patient appears stable for discharge and has been instructed to return immediately if the symptoms worsen in any way , or in 8-12hr if not improved for re-evaluation. The patient has been instructed to return if the symptoms worsen or change in any way. Ultrasound negative for acute pathology shows retained cyst. Patient was given IV fluids. Possibly related constipation patient was encouraged take stool softeners and/ or suppositories. We will give Reglan for nausea. 08/01/17 00:52 - Vital Signs Vital signs: Temp Pulse Resp BP Pulse Ox 98.6 F 91 16 126/76 H 98 07/31/17 19:33 07/31/17 19:33 07/31/17 19:33 07/31/17 19:33 07/31/17 19:33 - Laboratory Result Diagrams: 07/31/17 22:37 07/31/17 22:37 Laboratory results interpreted by me: 07/31/17 22:37 Urine Protein 30 H Urine Urobilinogen 2.0 H Ur Leukocyte Esterase SMALL H Discharge - Discharge Clinical Impression: RLQ abdominal pain, Ovarian cyst, left Constipation Qualifiers: Constipation type: unspecified constipation type Qualified Code(s): K59.00 - Constipation, unspecified Condition: Good Disposition: HOME, SELF-CARE Instructions: Abdominal Pain ([facility]), Constipation ([facility]), Observation for Appendicitis ([facility]), Ovarian Cyst ([facility]), Pelvic Pain in ([facility]) Additional Instructions: Your evaluation today does not reveal any critical signs for your right lower quadrant abdominal pain. You do not have a white count your examination is not consistent with appendicitis however I would continue to monitor for this possible etiology. Return if you develop a fever or worsening symptoms. Your ultrasound shows that the fetus heart rate is 144 within normal limits. He do have a left ovarian cyst that remains. Can have your BELT CHANGER continue to follow this ovarian cyst. Your pain can be due to constipation. Would recommend using the suppository that we gave you here in ER also taking [id number] stool softeners. Please make sure you drink plenty water as this will aid with your constipation. Prescriptions: Docusate Sodium [Colace 100 mg Capsule] 100 mg PO DAILY #30 capsule Glycerin 1 each RC DAILY #20 supp.rect Metoclopramide HCl [Reglan] 5 mg PO Q6 #20 tablet Referrals: EHSAN STEARNS MD [Primary Care Provider] - Follow up as needed
[2017-08-01] MEDS ORDERED: GLYCERIN (ADULT) SUPP.RECT PR ONE (00:46)
[2017-08-01 01:05] VITALS: BP 100/56
== END 2017-08-01 01:03 | disposition home or self-care (01) ==
LOC: ER 19:01
DX: N83.202 Unspecified ovarian cyst, left side (principal); R10.31 Right lower quadrant pain; Z3A.19 19 weeks gestation of pregnancy
CPT/HCPCS: 99284; 96361; 96374; 36415; 85025; 80048; 81001; 76830; 93976; J3490; S0119; J2765; J7030

== ENCOUNTER 2017-12-18 09:36 | Outpatient (CLI) | payer MEDICAID ==
[2017-12-18 10:13] LABS: ABSOLUTE LYMPHOCYTES (AUTO) 1.7 10^3/uL (0.5-4.7); ABSOLUTE MONOCYTES (AUTO) 0.4 10^3/uL (0.1-1.4); BASOPHILS % (AUTO) 0.2 % (0-2); EOSINOPHILS % (AUTO) 0.7 % (0-6); HEMATOCRIT 34.7 % (36.0-47.0); HEMOGLOBIN 11.6 g/dL (12.0-15.5); LYMPHOCYTES % (AUTO) 27.7 % (13-45); MEAN CORPUSCULAR HEMOGLOBIN 28.7 pg (27.0-33.4); MEAN CORPUSCULAR HGB CONC 33.4 g/dL (32.0-36.0); MEAN CORPUSCULAR VOLUME 86 fl (80-97); PLATELET COUNT 180 10^3/uL (150-450); RED BLOOD COUNT 4.03 10^6/uL (3.72-5.28); RED CELL DISTRIBUTION WIDTH 13.3 % (11.5-14.0); SEGMENTED NEUTROPHILS % (AUTO) 64.4 % (42-78); TOTAL CELLS COUNTED % (AUTO) 100 %; WHITE BLOOD COUNT 6.2 10^3/uL (4.0-10.5)
--- NOTE | 2017-12-18 10:22 | Non Stress Test Report ---
Non Stress Test Datetime Report Generated by CPN: 12/18/2017 10:21 DEMOGRAPHIC EGA NST: 39.1 INDICATION Indication for Study: Decreased Movement; Ordered by Provider Indication for Study: Chronic Hypertension Indication for Study (NST) Other: GHTN VITAL SIGNS Temperature - NST: 98.2 NBPSYS NST: 134 NBPDIA NST: 83 MONITORING Monitor Explained: Monitor Explained; Test Explained; Patient Verbalized Understanding Monitor Explained: Monitor Explained; Test Explained; Patient Verbalized Understanding Time on Monitor: 12/18/2017 09:50 Time on Monitor: 12/18/2017 09:49 Time off Monitor: 12/18/2017 10:20 Time off Monitor: 12/18/2017 10:09 NST Duration: 30 NST INTERVENTIONS NST Interventions: PO Hydration; Reposition Patient NST Interventions: PO Hydration Physician Notified NST: Dr Mishra BABY A: [id number] BABY A Movement : Present Movement : Present Contraction Frequency : irr FHR Baseline : 130 Accelerations : 15X15 Accelerations : 15X15 Decelerations : None Variability : Moderate 6-25bpm Variability : Moderate 6-25bpm NST Review: Meets Criteria for Reactive NST NST Review: Meets Criteria for Reactive NST NST Review and Verified By : Reji Cardona [facility] NST Results: Reactive NST Results: Reactive NST REPORT Report Trigger: Send Report
[2017-12-18 10:26] LABS: ALANINE AMINOTRANSFERASE 23 U/L (9-52); ALBUMIN 3.2 g/dL (3.5-5.0); ALKALINE PHOSPHATASE 102 U/L (38-126); ANION GAP 9 (5-19); ASPARTATE AMINO TRANSFERASE 16 U/L (14-36); BILIRUBIN,DIRECT 0.2 mg/dL (0.0-0.4); BILIRUBIN,TOTAL 0.2 mg/dL (0.2-1.3); BLOOD UREA NITROGEN 5 mg/dL (7-20); CARBON DIOXIDE 25 mmol/L (22-30); CHLORIDE 106 mmol/L (98-107); GLUCOSE 82 mg/dL (75-110); LDH 347 U/L (313-618); POTASSIUM 3.3 mmol/L (3.6-5.0); SODIUM 139.9 mmol/L (137-145); URIC ACID 3.7 mg/dL (2.5-6.2)
[2017-12-18 11:09] LABS: APPEARANCE,URINE SLIGHTLY-CLOUDY; BILIRUBIN,URINE NEGATIVE (NEGATIVE); COLOR,URINE YELLOW; GLUCOSE, URINE NEGATIVE (NEGATIVE); KETONES,URINE NEGATIVE (NEGATIVE); LEUKOCYTE ESTERASE,URINE TRACE (NEGATIVE); NITRITE,URINE NEGATIVE (NEGATIVE); PROTEIN,URINE NEGATIVE (NEGATIVE); URINE SPECIFIC GRAVITY 1.009
[2017-12-18 11:31] LABS: URINE AMPHETAMINES SCREEN NEGATIVE; URINE BARBITURATES SCREEN NEGATIVE; URINE BENZODIAZEPINES SCREEN NEGATIVE; URINE COCAINE SCREEN NEGATIVE; URINE MARIJUANA (THC) SCREEN NEGATIVE; URINE METHADONE SCREEN NEGATIVE; URINE PHENCYCLIDINE SCREEN NEGATIVE
[2017-12-18 12:01] LABS: UR PRO/CREAT RATIO RESULT 0.2 mg/mg (0.0-0.2); URINE CREATININE 98.3 mg/dL (16-327); URINE PROTEIN 16.5 mg/dL (<12)
== END 2017-12-18 12:27 | disposition home or self-care (01) ==
LOC: LC 09:36
PROVIDERS: ATTEND Obstetrics & Gynecology Gynecology
PROC: 4A1HXCZ Monitoring of Products of Conception, Cardiac Rate, External Approach (ICD-10-PCS; principal; 2017-12-18)
DX: O36.8130 Decreased fetal movements, third trimester, not applicable or unspecified (principal); Z3A.39 39 weeks gestation of pregnancy
CPT/HCPCS: 36415; 59025; 80053; 80307; 81001; 82570; 83615; 84156; 84550; 85025

== ENCOUNTER 2017-12-24 06:46 | Inpatient (IN) | payer MEDICAID ==
[2017-12-24] MEDS ORDERED: RINGERS SOLUTION,LACTATED 300 ML IV ONE (07:05)
[2017-12-24] MEDS ORDERED: OXYTOCIN/NORMAL SALINE 20 UNIT/1,000 ML RTUINJ IV PRN (07:05)
[2017-12-24 07:50] LABS: APPEARANCE,URINE CLOUDY; BILIRUBIN,URINE NEGATIVE (NEGATIVE); COLOR,URINE YELLOW; GLUCOSE, URINE NEGATIVE (NEGATIVE); KETONES,URINE 20 mg/dL (NEGATIVE); LEUKOCYTE ESTERASE,URINE LARGE (NEGATIVE); NITRITE,URINE NEGATIVE (NEGATIVE); PROTEIN,URINE NEGATIVE (NEGATIVE); URINE SPECIFIC GRAVITY 1.013
[2017-12-24] MEDS ORDERED: MISOPROSTOL 0.2 MG TABLET ONE (07:54)
[2017-12-24] MEDS ORDERED: OXYTOCIN/NORMAL SALINE 20 UNIT/1,000 ML RTUINJ ONE (07:54)
[2017-12-24] MEDS ORDERED: LIDOCAINE 1% INJ-PF (10 MG/ML) 30 ML SDV ONE (07:54)
[2017-12-24 08:10] LABS: URINE AMPHETAMINES SCREEN NEGATIVE; URINE BARBITURATES SCREEN NEGATIVE; URINE BENZODIAZEPINES SCREEN NEGATIVE; URINE COCAINE SCREEN NEGATIVE; URINE MARIJUANA (THC) SCREEN NEGATIVE; URINE METHADONE SCREEN NEGATIVE; URINE PHENCYCLIDINE SCREEN NEGATIVE
[2017-12-24] MEDS: RINGERS SOLUTION,LACTATED 1,000 ML IV PRN (08:33)
[2017-12-24 08:46] LABS: ABSOLUTE LYMPHOCYTES (AUTO) 1.7 10^3/uL (0.5-4.7); ABSOLUTE MONOCYTES (AUTO) 0.6 10^3/uL (0.1-1.4); ABSOLUTE NEUT (AUTO) 5.4 10^3/uL (1.7-8.2); BASOPHILS % (AUTO) 0.4 % (0-2); EOSINOPHILS % (AUTO) 0.4 % (0-6); HEMATOCRIT 33.7 % (36.0-47.0); HEMOGLOBIN 11.3 g/dL (12.0-15.5); LYMPHOCYTES % (AUTO) 21.8 % (13-45); MEAN CORPUSCULAR HEMOGLOBIN 28.8 pg (27.0-33.4); MEAN CORPUSCULAR HGB CONC 33.6 g/dL (32.0-36.0); MEAN CORPUSCULAR VOLUME 86 fl (80-97); MONOCYTES % (AUTO) 7.4 % (3-13); PLATELET COUNT 184 10^3/uL (150-450); RED BLOOD COUNT 3.93 10^6/uL (3.72-5.28); RED CELL DISTRIBUTION WIDTH 13.5 % (11.5-14.0); TOTAL CELLS COUNTED % (AUTO) 100 %; WHITE BLOOD COUNT 7.7 10^3/uL (4.0-10.5)
[2017-12-24 09:01] LABS: ALANINE AMINOTRANSFERASE 26 U/L (9-52); ALBUMIN 3.1 g/dL (3.5-5.0); ALKALINE PHOSPHATASE 105 U/L (38-126); ANION GAP 11 (5-19); ASPARTATE AMINO TRANSFERASE 16 U/L (14-36); BILIRUBIN,DIRECT 0.2 mg/dL (0.0-0.4); BILIRUBIN,TOTAL 0.4 mg/dL (0.2-1.3); BLOOD UREA NITROGEN 5 mg/dL (7-20); CALCIUM 9.1 mg/dL (8.4-10.2); CARBON DIOXIDE 24 mmol/L (22-30); CHLORIDE 106 mmol/L (98-107); GLUCOSE 82 mg/dL (75-110); LDH 424 U/L (313-618); POTASSIUM 3.5 mmol/L (3.6-5.0); SODIUM 140.8 mmol/L (137-145)
--- NOTE | 2017-12-24 16:27 | Admission Physical ---
Datetime Report Generated by CPN: 12/24/2017 16:27 CURRENT ADMISSION Chief Complaint: Scheduled Induction of Labor Indication for Induction: Gestational HTN Admit Impression : Term, Intrauterine ; Induction of Labor Admit Plan: Admit to Unit; Initiate Labor Induction Protocol ALLERGIES Medication Allergies: No Medication Allergies: No Known Allergies (12/24/2017) Latex: No Latex Allergies Food Allergies: n/a Environmental Allergies: n/a OBSTETRICAL HISTORY EDC: 12/24/2017 00:00 : 5 Para: 3 Term: 3 : 0 SAB: 1 IAB: 0 Ectopic: 0 Livin Cesareans: 0 VBACs: 0 Multiple Births: 0 Gestational Diabetes: No Rh Sensitization: No Incompetent Cervix: No YOUNG: No Infertility: No ART Treatment: No Uterine Anomaly: No IUGR: No Hx Previous C/S: No Macrosomia: No Hx Loss/Stillborn: No PIH: No Hx : No Placenta Previa/Abruption: No Depression/PP Depression: No PTL/PROM: No Post Hemorrhage: No Current Procedures: NST Obstetrical History Comments: G1- 2008 @ 40+wks 7lbs male G2- 2009 @ 40+wks 7lbs male G3- 2014 @ 39.2wks 8lbs 9oz male G4- 2015 SAB less than 6 wks G5- current SEE RECORDS Alcohol: No Marijuana : No Cocaine: No Other Illicit Drugs: No Cigarettes: Never Smoker. [id number] MEDICAL HISTORY Diabetes: No Blood Transfusion: No Pulmonary Disease (Asthma, TB): No Breast Disease: No Hypertension: Yes Wine And Spirits Clerk Surgery: No Heart Disease: No Hosp/Surgery: Yes Autoimmune Disorder: No Anesthetic Complications: No Kidney Disease: No Abnormal Pap Smear: No Neuro/Epilepsy: No Psychiatric Disorders: No Other Medical Diseases: Yes Hepatitis/Liver Disease: No Significant Family History: No Varicosities/Phlebitis: No Trauma/Violence : No Thyroid Dysfunction: No Medical History Comments: Childbirth x3; GHTN in previous ; Lt ovary complex cyst 5.7cm; Obesity; Possible dermoid cyst on initial sonogram-7.1cm INFECTIOUS HISTORY Gonorrhea: Yes Genital Herpes: No Chlamydia: No Tuberculosis: No Syphilis: No Hepatitis: No HIV/AIDS Exposure: No Rash or Viral Illness: No HPV: No Infectious History Comments: Hx of Chlamydia, negative this PHYSICAL EXAM General: Normal HEENT: Normal Neurologic: Normal Thyroid: Deferred Heart: Normal Lungs: Normal Breast: Deferred Back: Normal Abdomen: Normal Genitourinary Exam: Normal Extremities: Normal DTRs: Normal Pelvic Type: Adequate Vital Signs: Reviewed; Within Normal Limits MEMBRANES Membranes: Intact FETUS A EGA: 40.0 Monitoring: External US FHR- Baseline: 120 Variability: Moderate 6-25bpm Accelerations: 15X15 Decelerations: None FHR Category: Category I Presentation: Vertex Admit Comment: Admitted for IOL for GHTN Proven for 8lbs 9oz Obesity Anemia Polyhydramnios at 28 wks-8.31 on 12/22/17 Possible dermoid cyst on initial ultrasound Antepartum records reviewed IOL-Pitocin infusing per protocol PLANS FOR LABOR AND DELIVERY Labor and Delivery: None Pain Management: Natural Feeding Preference: Formula Benefit of Breast Feed Discussed: Yes Circumcision: Yes INFORMED CONSENT Assignment: Trell Mishra MD Signature: with User ID: [email or web address] : with User ID: [email or web address] : I personally evaluated and examined the patient in conjunction with the MLP and agree with the assessment, treatment plan and disposition.
[2017-12-24] MEDS ORDERED: DINOPROSTONE 10 MG VAGINAL INSERT.SR ONE (20:22)
[2017-12-24] MEDS ORDERED: DINOPROSTONE 10 MG VAGINAL INSERT.SR PV PRN (20:45)
[2017-12-25] MEDS ORDERED: NALBUPHINE HCL INJ 10 MG/1 ML AMPULE INJ ONE (06:40)
[2017-12-25] MEDS ORDERED: NALBUPHINE HCL INJ 10 MG/1 ML AMPULE ONE (06:40)
--- NOTE | 2017-12-25 08:43 | L&D Progress Notes ---
PROGRESS NOTES Datetime Report Generated by CPN: 12/25/2017 08:43 PROGRESS NOTE Impression: Reassuring Heart Rate Procedures: Sterile Vag Exam Plan: Induction Informed Consent Obtained: Vaginal Delivery Vital Signs : Reviewed Comment: Pt states she had gush of fluid around 430. SVE 4/60/-2 Start pitocin May have epidural prn VAGINAL EXAM Dilatation: 4 Effacement: 60 Station: -2 Contractions: 2-5 MEMBRANES Membranes: Ruptured Membranes: Intact FETUS A FHR - Baseline: 120 Monitoring: External US Variability: Moderate 6-25bpm Accelerations: 15X15 Decelerations: None : 40.0 Presentation: Vertex SIGNATURE SIGNATURE: [id number] SIGNATURE: ,[id number] SIGNATURE: ,[id number] Assignment: Aurora Omer MD Signature: with User ID: [email or web address] : with User ID: [email or web address] : I personally evaluated and examined the patient in conjunction with the MLP and agree with the assessment, treatment plan and disposition.
[2017-12-25] MEDS: RINGERS SOLUTION,LACTATED 1,000 ML IV PRN ×2 (08:45→09:40)
[2017-12-25] MEDS ORDERED: OXYTOCIN/NORMAL SALINE 20 UNIT/1,000 ML RTUINJ IV PRN ×2 (08:50→13:39)
[2017-12-25] MEDS ORDERED: FENTANYL CITRATE INJ/PF 100 MCG/2 ML AMPUL ONE (08:54)
[2017-12-25] MEDS ORDERED: EPHEDRINE SULFATE INJ 50 MG/1 ML AMPULE ONE (08:55)
[2017-12-25] MEDS ORDERED: PHENYLEPHRINE HCL INJ/PF 10 MG/1 ML SDV ONE (08:55)
[2017-12-25] MEDS ORDERED: FENTANYL/BUPIVACAINE/NS/PF 300 MCG/150 ML RTUINJ EPI ONE (08:55)
[2017-12-25] MEDS ORDERED: BUPIVACAINE HCL 0.25 % INJ/PF (2.5 MG/1 ML) 30 ML VIAL ONE (08:55)
[2017-12-25] MEDS ORDERED: MISOPROSTOL 0.2 MG TABLET ONE (08:56)
[2017-12-25] MEDS ORDERED: OXYTOCIN/NORMAL SALINE 20 UNIT/1,000 ML RTUINJ ONE (08:56)
[2017-12-25] MEDS ORDERED: LIDOCAINE 1% INJ-PF (10 MG/ML) 30 ML SDV ONE (08:56)
[2017-12-25] MEDS ORDERED: ONDANSETRON 4 MG TAB.RAPDIS PO ONE (12:25)
[2017-12-25] MEDS ORDERED: ONDANSETRON HCL INJ/PF 4 MG/2 ML SDV IV ONE (12:26)
[2017-12-25] MEDS ORDERED: ONDANSETRON HCL INJ/PF 4 MG/2 ML SDV ONE (12:27)
[2017-12-25] MEDS ORDERED: ZOLPIDEM TARTRATE 5 MG TABLET PO PRN (13:39)
[2017-12-25] MEDS ORDERED: DIPH/PERTUSS(ACELL)/TETANUS VAC/PF 0.5 ML SYR (>=10YO) IM PRN (13:39)
[2017-12-25] MEDS ORDERED: DIBUCAINE 1% OINTMENT 28 GM TP PRN (13:39)
[2017-12-25] MEDS ORDERED: MEASLES,MUMPS&RUBELLA VACC/PF 0.5 ML VIAL SUBCUT PRN (13:39)
[2017-12-25] MEDS ORDERED: BENZOCAINE/MENTHOL AEROSOL SPRAY 56 ML TOP PRN (13:39)
[2017-12-25] MEDS ORDERED: ACETAMINOPHEN WITH CODEINE #3 TABLET PO PRN ×2 (13:39)
--- NOTE | 2017-12-25 14:39 | Warning Signs in Babies ---
VOD Warning Signs Datetime Report Generated by [facility]: 12/25/2017 14:39 VOD#608 -Warning Signs in Babies: Needs to be viewed. (12/18/2017 09:41:Bernard Devries RN)
--- NOTE | 2017-12-25 15:53 | Delivery Summary ---
Del Sum A-C Datetime Report Generated by CPN: 12/25/2017 15:53 DELIVERY PERSONNEL DELIVERY PERSONNEL: [id number] Delivery Doctor:: Erin Rock CNM Labor and Delivery Nurse:: Bernard Devries RN Nursery Nurse:: Ileana Ritchie RN Jig And Fixture Builder Apprentice/RESTUARANT CREW WORKER: Mayra Nichols CNA II MATERNAL INFORMATION Delivery Anesthesia: Epidural Medications After Delivery: Pitocin Bolus-Please Comment Meds After Delivery Comment: 20 units pitocin following placenta delivery Estimated Blood Loss (ml): 75 Maternal Complications: None Provider Comments: of viable male , head, shoulders, and delivered without difficulty, with cry and respirations with stimulation, kept skin to skin, cord clamped X2, after 2 min delay, infant cut free by fob, spontaneous delivery of placenta via simeon mechanism, appears intact, 3 VC. Hemostasis acheived with external fundal massage and IV pitocin, vagina and perineum inspected, no lacerations noted, mohter and infant in stable condition, routine pp care. LABOR SUMMARY EDC: 12/24/2017 00:00 No. Babies in Womb: 1 Attempted: No Labor Anesthesia: Epidural LABOR INFORMATION Reason for Induction: Gestational Hypertension Onset of Labor: 12/25/2017 08:30 Complete Dilatation: 12/25/2017 13:22 Cervical Ripening Agents: Cervidil Oxytocin: Augmentation Group B Beta Strep: Negative Steroids Given: None Reason Steroids Not Administered: Not Applicable MEMBRANES Membranes Rupture Method: Spontaneous Rupture of Membranes: 12/25/2017 05:40 Length of Rupture (hr): 7.83 Amniotic Fluid Color: Clear Amniotic Fluid Amount: Small Amniotic Fluid Odor: Normal STAGES OF LABOR Stage 1 hr: 4 Stage 1 min: 52 Stage 2 hr: 0 Stage 2 min: 8 Stage 3 hr: 0 Stage 3 min: 5 Total Time in Labor hr: 5 Total Time in Labor min: 5 VAGINAL DELIVERY Episiotomy: None Laceration #1: None Laceration Extension #1: N/A Laceration Repair: Not Applicable Sponge Count Correct: N/A Sharps Count Correct: N/A CSECTION DELIVERY Primary Indication: N/A Secondary Indication: N/A CSection Urgency: n/a CSection Incidence: N/A Labor: N/A Elective: N/A CSection Incision: N/A BABY A INFORMATION Delivery Date/Time: 12/25/2017 13:30 Method of Delivery: Vaginal Born in Route : No : N/A Forceps: N/A Vacuum Extraction: N/A Shoulder Dystocia : No PRESENTATION/POSITION BABY A Presentation: Cephalic Cephalic Presentation: Vertex Vertex Position: Right Occipital Anterior Breech Presentation: N/A PLACENTA INFORMATION BABY A Placenta Delivery Time : 12/25/2017 13:35 Placenta Method of Delivery: Spontaneous Placenta Status: Delivered SCORES BABY A Heart Rate 1 min: >100 bpm Resp Effort 1 min: Good Cry Reflex Irritability 1 min: Cough or Sneeze or Pulls Away Muscle Tone 1 min: Active Motion Color 1 min: Blue/Pale Resuscitation Effort 1 min: Tactile Stimulation SCORE 1 MIN: 8 Heart Rate 5 min: >100 bpm Resp Effort 5 min: Good Cry Reflex Irritability 5 min: Cough or Sneeze or Pulls Away Muscle Tone 5 min: Active Motion Color 5 min: Body [place], Extremities Blue Resuscitation Effort 5 min: Tactile Stimulation SCORE 5 MIN: 9 INFORMATION BABY A Gestational Age at Delivery: 40.1 Gestational Status: Full Term- 39- 40.6 Weeks Infant Outcome : Liveborn Infant Condition : Stable Infant Sex: Male IDENTIFICATION BABY A Infant Verification Date/Time: 12/25/2017 14:19 ID Band Number: [id number] Mother's Name Verified: Yes Infant RN Verifying : S Brown RESTUARANT CREW WORKER Additional Verifying Personnel: D Bellavamte RNC WEIGHT/LENGTH BABY A Birthweight (gm): 3810 Weight (lb): 8 Weight (oz): 6 Infant Length (in): 21.00 Length (cm): 53.34 CORD INFORMATION BABY A No. Cord Vessels: 3 Nuchal Cord : N/A Cord Blood Taken: Yes-For Eval (Mom's Blood Type - or O+) Suction: Mouth; Nose ASSESSMENT BABY A Complications: Other Complications- Other: terminal meconium Physical Findings at Delivery: Other Physical Findings- Other: see nursery notes Infant Respirations: Appears Normal Skin to Skin: Yes Manager Port/ALS Called : No Infant Care By: Juancho Ritchie RN Transferred To: [facility] BABY B INFORMATION : N/A SIGNATURES Assignment: Aurora Omer MD Signature: with User ID: [email or web address] : with User ID: Ban : I personally evaluated and examined the patient in conjunction with the MLP and agree with the assessment, treatment plan and disposition.
--- NOTE | 2017-12-25 16:06 | Warning Signs in Babies ---
VOD Warning Signs Datetime Report Generated by [facility]: 12/25/2017 16:05 VOD#608 -Warning Signs in Babies: Viewed with Parent(s)/Family (12/18/2017 09:41:Bernard Devries RN)
[2017-12-25] MEDS: IBUPROFEN 800 MG TABLET PO SCH ×2 (17:15→21:58)
[2017-12-25] MEDS: FERROUS SULFATE 325 MG TABLET PO SCH (17:23)
[2017-12-25] MEDS: DOCUSATE SODIUM 100 MG CAPSULE PO SCH (17:23)
[2017-12-25] MEDS ORDERED: NIFEDIPINE 30 MG TAB.ER.24 PO ONE (21:00)
[2017-12-25] MEDS: NIFEDIPINE 30 MG TAB.ER.24 PO SCH (21:58)
[2017-12-26] MEDS: IBUPROFEN 800 MG TABLET PO SCH ×3 (05:08→22:28)
[2017-12-26 08:13] LABS: ALANINE AMINOTRANSFERASE 23 U/L (9-52); ALBUMIN 3.1 g/dL (3.5-5.0); ALKALINE PHOSPHATASE 105 U/L (38-126); ANION GAP 9 (5-19); ASPARTATE AMINO TRANSFERASE 16 U/L (14-36); BILIRUBIN,DIRECT 0.2 mg/dL (0.0-0.4); BILIRUBIN,TOTAL 0.5 mg/dL (0.2-1.3); BLOOD UREA NITROGEN 4 mg/dL (7-20); CALCIUM 9.3 mg/dL (8.4-10.2); CARBON DIOXIDE 25 mmol/L (22-30); CHLORIDE 106 mmol/L (98-107); GLUCOSE 62 mg/dL (75-110); POTASSIUM 3.6 mmol/L (3.6-5.0); SODIUM 140.1 mmol/L (137-145); TOTAL PROTEIN 5.9 g/dL (6.3-8.2)
[2017-12-26 08:17] LABS: HEMATOCRIT 34.6 % (36.0-47.0); HEMOGLOBIN 11.4 g/dL (12.0-15.5); MEAN CORPUSCULAR HEMOGLOBIN 28.4 pg (27.0-33.4); MEAN CORPUSCULAR VOLUME 86 fl (80-97); PLATELET COUNT 186 10^3/uL (150-450); RED BLOOD COUNT 4.01 10^6/uL (3.72-5.28); RED CELL DISTRIBUTION WIDTH 13.8 % (11.5-14.0)
[2017-12-26] MEDS: DOCUSATE SODIUM 100 MG CAPSULE PO SCH ×2 (09:48→18:56)
[2017-12-26] MEDS: SENNOSIDES/DOCUSATE 8.6-50 MG 1 EACH TABLET PO SCH (09:48)
[2017-12-26] MEDS: PRENATAL VITAMIN W DHA CAPSULE PO SCH (09:48)
[2017-12-26] MEDS: FERROUS SULFATE 325 MG TABLET PO SCH ×2 (09:49→18:56)
--- NOTE | 2017-12-26 12:20 | PDOC PROGRESS REPORT ---
Subjective-OB Progress Note for:: 12/26/17 Subjective: s/p Day #1 Doing well, denies concerns, states lochia is stable, pain well controlled, voiding without difficulty. Physical Exam (OB) Vital Signs: Temp Pulse Resp BP Pulse Ox 98.1 F 77 16 133/90 H 100 12/26/17 07:55 12/26/17 07:55 12/26/17 07:55 12/26/17 07:55 12/26/17 07:55 Intake & Output 12/25/17 12/26/17 12/27/17 06:59 06:59 06:59 Weight 110.8 kg - PIH/Pre-Eclampsia DTR's: 1 + Clonus: Negative Headache: Absent Epigastric Pain: No Visual Changes: No - Lochia Lochia Amount: Scant < 10 ml Lochia Color: Rubra/Red - Abdomen Description: Tender, Soft Hernia Present: No Fundal Description: Firm, Midline Fundal Height: u/u - u/2 Objective-Diagnostic Laboratory: 12/26/17 06:56 12/26/17 06:56 12/26/17 12/26/17 06:56 06:56 WBC 10.0 RBC 4.01 Hgb 11.4 L Hct 34.6 L MCV 86 MCH 28.4 MCHC 33.0 RDW 13.8 Plt Count 186 Sodium 140.1 Potassium 3.6 Chloride 106 Carbon Dioxide 25 Anion Gap 9 BUN 4 L Creatinine 0.57 Est GFR ( Amer) > 60 Est GFR (Non-Af Amer) > 60 Glucose 62 L Calcium 9.3 Total Bilirubin 0.5 AST 16 ALT 23 Alkaline Phosphatase 105 Total Protein 5.9 L Albumin 3.1 L Assessment and Plan(PN) - Assessment and Plan (1) Gestational hypertension without significant proteinuria during in first trimester, antepartum Is this a current diagnosis for this admission?: Yes Plan: monitor bp (2) Vaginal delivery Is this a current diagnosis for this admission?: Yes Plan: routine pp care - Time Spent with Patient Time with patient: Less than 15 minutes Critical Time spent with patient: Less than 15 minutes Medications reviewed and adjusted accordingly: Yes - Disposition Anticipated Discharge: Home Within: within 24 hours
[2017-12-26] MEDS: NIFEDIPINE 30 MG TAB.ER.24 PO SCH (22:28)
[2017-12-27] MEDS: IBUPROFEN 800 MG TABLET PO SCH (05:16)
[2017-12-27] MEDS: FERROUS SULFATE 325 MG TABLET PO SCH (09:53)
[2017-12-27] MEDS: PRENATAL VITAMIN W DHA CAPSULE PO SCH (09:53)
[2017-12-27] MEDS: SENNOSIDES/DOCUSATE 8.6-50 MG 1 EACH TABLET PO SCH (09:53)
[2017-12-27] MEDS: DOCUSATE SODIUM 100 MG CAPSULE PO SCH (09:53)
--- NOTE | 2017-12-27 10:29 | PDOC DISCHARGE SUMMARY ---
Final Diagnosis Discharge Date: 12/27/17 - Final Diagnosis (1) Gestational hypertension without significant proteinuria during in first trimester, antepartum Is this a current diagnosis for this admission?: Yes (2) Vaginal delivery Is this a current diagnosis for this admission?: Yes Discharge Data - Discharge Medication Prescriptions: Docusate Sodium [Colace 100 mg Capsule] 100 mg PO BID #60 capsule Ibuprofen [Motrin 800 mg Tablet] 800 mg PO Q8 #60 tablet Home Medications: Prenat 115/Iron Fum/Folic/Dss [ 19 Tablet] 1 tab PO DAILY 06/30/17 Docusate Sodium [Colace 100 mg Capsule] 100 mg PO BID #60 capsule 12/27/17 Ibuprofen [Motrin 800 mg Tablet] 800 mg PO Q8 #60 tablet 12/27/17 Gestational Age: 39 Reason(s) for Admission: Induction of Labor, PIH Procedures: NST Intrapartum Procedure(s): Spontaneous Vaginal Delivery - [place] Data Baby 1 Male at 1 minute: 8 at 5 minutes: 9 Weight: 3810 kg Home with Mother: Yes Complications: No - Diagnosis Test Laboratory: Temp Pulse Resp BP Pulse Ox 98.1 F 88 18 142/93 H 98 12/27/17 07:59 12/27/17 07:59 12/27/17 07:59 12/27/17 07:59 12/27/17 07:59 12/24/17 12/24/17 12/26/17 06:54 08:19 06:56 RBC 3.93 4.01 Hgb 11.3 L 11.4 L Hct 33.7 L 34.6 L Urine Opiates Screen NEGATIVE - Discharge information/Instructions Discharge Activity: Activity As Tolerated, Pelvic Rest, No tub bath Discharge Diet: Regular Disposition: HOME, SELF-CARE Follow [facility] with: [facility] in: 1, Weeks
[2017-12-27 11:33] VITALS: BP 143/91
== END 2017-12-27 12:45 | disposition home or self-care (01) | DRG 775 ==
LOC: LR 06:46 → 2S 12-25 16:00
PROVIDERS: ADMIT Student in an Organized Health Care Education/Training Program; ATTEND Student in an Organized Health Care Education/Training Program
PROC: 10E0XZZ Delivery of Products of Conception, External Approach (ICD-10-PCS; principal; 2017-12-25)
DX: O13.4 Gestational [pregnancy-induced] hypertension without significant proteinuria, complicating childbirth (principal); O40.3XX0 Polyhydramnios, third trimester, not applicable or unspecified; O99.214 Obesity complicating childbirth; O77.0 Labor and delivery complicated by meconium in amniotic fluid; O99.013 Anemia complicating pregnancy, third trimester; D64.89 Other specified anemias; Z3A.40 40 weeks gestation of pregnancy; Z37.0 Single live birth
CPT/HCPCS: 36415; 80053; 80307; 81005; 83615; 84550; 85025; 85027; 86592; 86850; 86900; 86901; J2300; J2370; J2405; J2590; J3010; J3490

== ENCOUNTER 2018-01-30 12:22 | Emergency (ER) | payer MEDICAID ==
[2018-01-30] MEDS ORDERED: ACETAMINOPHEN 325 MG TABLET PO ONE (12:45)
[2018-01-30] MEDS ORDERED: DEXAMETHASONE SOD PHOS INJ 10 MG/1 ML VIAL IV ONE (12:46)
--- NOTE | 2018-01-30 12:48 | ER Document Report ---
ED Medical Screen (RME) - General Chief Complaint: Headache >24 hrs old Stated Complaint: HEADACHE Time Seen by Provider: 01/30/18 12:45 Mode of Arrival: Ambulatory Information source: Patient Notes: This is a 27-year-old female she presents to the emergency room with fever, sore throat and headache. Patient states she normally has headaches every day and that the headache today is no different than her usual headaches. Of significance today, is that she is having sore throat with fever. She denies any sick contacts. She denies any neck stiffness or photophobia. She denies any rashes. She denies any cough, abdominal pain, nausea vomiting. In the triage area, the patient is alert and oriented 3, she has no neck stiffness, no photophobia and she does not look in significant distress. There is no evidence of meningismus. I have greeted and performed a rapid initial assessment of this patient. A comprehensive ED assessment and evaluation of the patient, analysis of test results and completion of medical decision making process we will be contacted by additional ED providers. TRAVEL OUTSIDE OF THE [place] IN LAST 30 DAYS: No - Related Data Allergies/Adverse Reactions: No Known Allergies Allergy (Verified 01/30/18 12:22) Past Medical History - Social History Chew tobacco use (# tins/day): No Frequency of alcohol use: None Drug Abuse: None Pulmonary Medical History: Reports: Hx Pneumonia Renal/ Medical History: Denies: Hx Peritoneal Dialysis Skin Medical History: Reports Hx Cellulitis - Immunizations Hx Diphtheria, Pertussis, Tetanus Vaccination: No Physical Exam - Vital signs Vitals: Temp Pulse Resp BP Pulse Ox 102.2 F H 112 H 22 H 136/93 H 97 01/30/18 12:01/30/18 12:01/30/18 12:01/30/18 12:01/30/18 12:26 Course - Vital Signs Vital signs: Temp Pulse Resp BP Pulse Ox 102.2 F H 112 H 22 H 136/93 H 97 01/30/18 12:01/30/18 12:01/30/18 12:01/30/18 12:01/30/18 12:26 Doctor's Discharge - Discharge Referrals: JAYLAN GALLEGO MD [Primary Care Provider] - Follow up as needed
[2018-01-30] MEDS: NORMAL SALINE 1000 ML 1,000 ML IV PRN ×2 (12:57→13:00)
[2018-01-30 13:24] LABS: ABSOLUTE LYMPHOCYTES (AUTO) 0.8 10^3/uL (0.5-4.7); ABSOLUTE MONOCYTES (AUTO) 0.4 10^3/uL (0.1-1.4); ABSOLUTE NEUT (AUTO) 6.9 10^3/uL (1.7-8.2); BASOPHILS % (AUTO) 0.2 % (0-2); EOSINOPHILS % (AUTO) 0.2 % (0-6); HEMATOCRIT 40.9 % (36.0-47.0); HEMOGLOBIN 13.8 g/dL (12.0-15.5); LYMPHOCYTES % (AUTO) 9.9 % (13-45); MEAN CORPUSCULAR HEMOGLOBIN 28.9 pg (27.0-33.4); MEAN CORPUSCULAR HGB CONC 33.6 g/dL (32.0-36.0); MEAN CORPUSCULAR VOLUME 86 fl (80-97); MONOCYTES % (AUTO) 4.7 % (3-13); PLATELET COUNT 193 10^3/uL (150-450); RED BLOOD COUNT 4.76 10^6/uL (3.72-5.28); RED CELL DISTRIBUTION WIDTH 14.5 % (11.5-14.0); TOTAL CELLS COUNTED % (AUTO) 100 %; WHITE BLOOD COUNT 8.1 10^3/uL (4.0-10.5)
--- NOTE | 2018-01-30 13:31 | ER Document Report ---
ED General - General Chief Complaint: Headache >24 hrs old Stated Complaint: HEADACHE Time Seen by Provider: 01/30/18 12:45 Mode of Arrival: Ambulatory Information source: Patient Notes: 27-year-old female presents with complaints of sore throat fever body aches headache back pain since yesterday patient denies any nausea or vomiting. Patient admits no sick contacts notes immunizations are up-to-date TRAVEL OUTSIDE OF THE [place] IN LAST 30 DAYS: No - HPI Onset: Yesterday Onset/Duration: Persistent Quality of pain: Achy Severity: Mild Pain Level: 1 Associated symptoms: Body/muscle aches, Fever Exacerbated by: Denies Relieved by: Denies Similar symptoms previously: No Recently seen / treated by doctor: No - Related Data Allergies/Adverse Reactions: No Known Allergies Allergy (Verified 01/30/18 12:22) Past Medical History - General Information source: Patient - Social History Smoking Status: Never Smoker Cigarette use (# per day): No Chew tobacco use (# tins/day): No Smoking Education Provided: No Frequency of alcohol use: None Drug Abuse: None Family History: DM, Hypertension, Malignancy Patient has suicidal ideation: No Patient has homicidal ideation: No Pulmonary Medical History: Reports: Hx Pneumonia Renal/ Medical History: Denies: Hx Peritoneal Dialysis Skin Medical History: Reports Hx Cellulitis - Immunizations Hx Diphtheria, Pertussis, Tetanus Vaccination: No Review of Systems - Review of Systems Notes: REVIEW OF SYSTEMS: CONSTITUTIONAL : Admits to fevers chills EENT: Admits to sore throat CARDIOVASCULAR: Denies chest pain. Denies palpitations or racing or irregular heart beat. Denies ankle edema. RESPIRATORY: Denies cough, cold, or chest congestion. Denies shortness of breath, difficulty breathing, or wheezing. GASTROINTESTINAL: Denies abdominal pain or distention. Denies nausea, vomiting , or diarrhea. Denies blood in vomitus, stools, or per rectum. Denies black, tarry stools. Denies constipation. GENITOURINARY: Denies difficulty urinating, painful urination, burning, frequency, blood in urine, or discharge. FEMALE GENITOURINARY: Denies vaginal bleeding, heavy or abnormal periods, irregular periods. Denies vaginal discharge or odor. MUSCULOSKELETAL: Admits to body aches. SKIN: Denies rash, lesions or sores. HEMATOLOGIC : Denies easy bruising or bleeding. LYMPHATIC: Denies swollen, enlarged glands. NEUROLOGICAL: Denies confusion or altered mental status. Denies passing out or loss of consciousness. Denies dizziness or lightheadedness. Denies headache. Denies weakness or paralysis or loss of use of either side. Denies problems with gait or speech. Denies sensory loss, numbness, or tingling. Denies seizures. PSYCHIATRIC: Denies anxiety or stress. Denies depression, suicidal ideation, or homicidal ideation. ALL OTHER SYSTEMS REVIEWED AND NEGATIVE. PHYSICAL EXAMINATION: GENERAL: Febrile but overall well. HEAD: Atraumatic, normocephalic. EYES: Pupils equal round and reactive to light, extraocular movements intact, conjunctiva are normal. ENT: Bilateral tonsillar erythema uvula midline airway patent NECK: Normal range of motion, supple without lymphadenopathy LUNGS: Breath sounds clear to auscultation bilaterally and equal. No wheezes rales or rhonchi. HEART: Tachycardic ABDOMEN: Soft, nontender, nondistended abdomen. No guarding, no rebound. No masses appreciated. Female : deferred Musculoskeletal: Normal range of motion, no pitting or edema. No cyanosis. NEUROLOGICAL: Cranial nerves grossly intact. Normal speech, normal gait. Normal sensory, motor exams PSYCH: Normal mood, normal affect. SKIN: Warm, Dry, normal turgor, no rashes or lesions noted. Dictation was performed using [employer] voice recognition software Physical Exam - Vital signs Vitals: Temp Pulse Resp BP Pulse Ox 102.2 F H 112 H 22 H 136/93 H 97 01/30/18 12:26 01/30/18 12:26 01/30/18 12:26 01/30/18 12:26 01/30/18 12:26 Course - Re-evaluation Re-evalutation: 01/30/18 14:27 Patient is noted to be febrile, lab work did note positive for strep, patient was given Tylenol Toradol and penicillin, notes improvement of symptoms, she has no signs of meningitis After performing a Medical Screening Examination, I estimate there is LOW risk for ACUTE CORONARY SYNDROME, PULMONARY EMBOLI, RESPIRATORY FAILURE, SEPSIS OR MENINGITIS, thus I consider the discharge disposition reasonable. I have reevaluated this patient multiple times and no significant life threatening changes are noted. The patient and I have discussed the diagnosis and risks, and we agree with discharging home with close follow-up. We also discussed returning to the Emergency Department immediately if new or worsening symptoms occur. We have discussed the symptoms which are most concerning (e.g., changing or worsening pain, trouble swallowing or breathing, neck stiffness, fever) that necessitate immediate return. - Vital Signs Vital signs: Temp Pulse Resp BP Pulse Ox 102.2 F H 112 H 22 H 136/93 H 97 01/30/18 12:26 01/30/18 12:26 01/30/18 12:26 01/30/18 12:26 01/30/18 12:26 - Laboratory Result Diagrams: 01/30/18 12:53 01/30/18 12:53 Laboratory results interpreted by me: 01/30/18 01/30/18 12:53 12:53 RDW 14.5 H Seg Neutrophils % 85.0 H Lymphocytes % 9.9 L Glucose 115 H Discharge - Discharge Clinical Impression: Strep pharyngitis Fever Qualifiers: Fever type: unspecified Qualified Code(s): R50.9 - Fever, unspecified Condition: Stable Disposition: HOME, SELF-CARE Instructions: Strep Throat ([facility]) Additional Instructions: Follow up with your physician tomorrow for further care or return to the ED IMMEDIATELY if symptoms worsen or new concerns occur. If you cannot afford to follow up with your primary care physician a list of low cost clinics have been provided at the end of your discharge papers as well. Referrals: JAYLAN GALLEGO MD [ACTIVE STAFF] - Follow up tomorrow
[2018-01-30 13:36] LABS: ALANINE AMINOTRANSFERASE 32 U/L (9-52); ALBUMIN 4.3 g/dL (3.5-5.0); ALKALINE PHOSPHATASE 72 U/L (38-126); ANION GAP 14 (5-19); ASPARTATE AMINO TRANSFERASE 19 U/L (14-36); BILIRUBIN,DIRECT 0.3 mg/dL (0.0-0.4); BILIRUBIN,TOTAL 0.5 mg/dL (0.2-1.3); BLOOD UREA NITROGEN 13 mg/dL (7-20); CALCIUM 9.8 mg/dL (8.4-10.2); CARBON DIOXIDE 25 mmol/L (22-30); CHLORIDE 103 mmol/L (98-107); GLUCOSE 115 mg/dL (75-110); POTASSIUM 3.8 mmol/L (3.6-5.0); SODIUM 141.9 mmol/L (137-145); TOTAL PROTEIN 7.2 g/dL (6.3-8.2)
[2018-01-30] MEDS ORDERED: KETOROLAC TROMETHAMINE INJ/PF 30 MG/1 ML SDV IV ONE (14:00)
[2018-01-30] MEDS ORDERED: PENICILLIN G BENZATHINE 1.2 MILLION UNIT/2 ML DISP.SYRIN IM ONE (14:00)
[2018-01-30 14:42] VITALS: BP 143/87
== END 2018-01-30 14:42 | disposition home or self-care (01) ==
LOC: ER 12:22
DX: J02.0 Streptococcal pharyngitis (principal); R50.9 Fever, unspecified; R51 Headache; M54.9 Dorsalgia, unspecified
CPT/HCPCS: 99284; 96372; 96361; 96374; 96375; 36415; 87880; 85025; 86308; 80053; J3490; J1885; J0561; J7030; J1100

== ENCOUNTER 2018-02-25 05:27 | Day surgery (SDC) | payer MEDICAID ==
[2018-02-22 12:52] LABS: HEMATOCRIT 39.3 % (36.0-47.0); HEMOGLOBIN 13.1 g/dL (12.0-15.5); MEAN CORPUSCULAR HEMOGLOBIN 28.6 pg (27.0-33.4); MEAN CORPUSCULAR HGB CONC 33.4 g/dL (32.0-36.0); MEAN CORPUSCULAR VOLUME 86 fl (80-97); PLATELET COUNT 313 10^3/uL (150-450); RED BLOOD COUNT 4.59 10^6/uL (3.72-5.28); RED CELL DISTRIBUTION WIDTH 13.8 % (11.5-14.0); WHITE BLOOD COUNT 5.7 10^3/uL (4.0-10.5)
[2018-02-22 12:58] LABS: APPEARANCE,URINE SLIGHTLY-CLOUDY; BILIRUBIN,URINE NEGATIVE (NEGATIVE); COLOR,URINE YELLOW; GLUCOSE, URINE NEGATIVE (NEGATIVE); KETONES,URINE NEGATIVE (NEGATIVE); LEUKOCYTE ESTERASE,URINE TRACE (NEGATIVE); NITRITE,URINE NEGATIVE (NEGATIVE); PROTEIN,URINE >=500 mg/dL (NEGATIVE); URINE SPECIFIC GRAVITY 1.026
[~2018-02-25 05:27] MED LIST: LACTATED RINGERS 1000 ML IV PRN; LIDOCAINE 0.5% INJ-PF (5 MG/ML) 50 ML SDV SUBCUT PRN
[2018-02-25] MEDS ORDERED: PROPOFOL INJ 200 MG/20 ML VIAL IV ONE (07:09)
[2018-02-25] MEDS ORDERED: FENTANYL CITRATE INJ/PF 100 MCG/2 ML AMPUL ONE (07:09)
[2018-02-25] MEDS ORDERED: MIDAZOLAM 2 MG/2 ML INJ ONE (07:09)
[2018-02-25] MEDS ORDERED: LIDOCAINE 2% INJ (20 MG/ML) 20 ML MDV ONE (07:23)
[2018-02-25] MEDS: ACETAMINOPHEN 1,000 MG/100 ML RTUPB IV ONE ×2 (07:45→09:30)
[2018-02-25] MEDS ORDERED: PROMETHAZINE HCL INJ 25 MG/1 ML VIAL IV PRN (08:23)
[2018-02-25] MEDS ORDERED: DIPHENHYDRAMINE HCL 50 MG/ML VIAL IV PRN (08:23)
[2018-02-25] MEDS ORDERED: FENTANYL CITRATE INJ/PF 100 MCG/2 ML AMPUL IV PRN (08:23)
[2018-02-25] MEDS ORDERED: OXYCODONE-ACETAMINOPHEN 5-325 MG TABLET PO PRN ×4 (08:23→09:20)
[2018-02-25] MEDS ORDERED: MEPERIDINE HCL/PF INJ 25 MG/1 ML DISP.SYRIN IV PRN (08:23)
[2018-02-25] MEDS ORDERED: MORPHINE SULFATE 10 MG/ML INJ IV PRN ×2 (08:23→09:19)
[2018-02-25] MEDS: FENTANYL CITRATE INJ/PF 100 MCG/2 ML AMPUL ONE ×2 (09:03→09:08)
[2018-02-25] MEDS ORDERED: IBUPROFEN 800 MG TABLET PO PRN (09:20)
--- NOTE | 2018-02-25 09:20 | OPERATIVE REPORT E ---
Operative Report NAME: TELMA DOWELL : 1990 AGE: 27Y DATE OF SURGERY: 02/25/2018 ROOM: PREOPERATIVE DIAGNOSIS: Undesired fertility. POSTOPERATIVE DIAGNOSIS: Undesired fertility. OPERATION: Laparoscopic tubal cauterization. SURGEON: SHARLA PATTEN M.D. ANESTHESIA: Dr. Hanna with general. FINDINGS: Normal uterus, tubes and ovaries. COMPLICATIONS: None. ESTIMATED BLOOD LOSS: 20 mL. SPECIMENS REMOVED: None. PROCEDURE: The patient was taken to the operating room, prepared and draped in the normal sterile fashion in a dorsal lithotomy position under sterile condition. An in and out catheter was performed of approximately 20 mL of clear urine. A sterile speculum was placed in the vagina and the cervix was grasped on the anterior lip with a single-tooth tenaculum and prepped with Betadine. The Hulka clamp was then placed through the cervix for uterine manipulation without difficulty. The tenaculum and the speculum were then removed, gloves were changed and attention was turned to the upper portion of the case where an umbilical skin incision was made with the scalpel and the attempt to enter the peritoneal cavity with the Veress needle was unsuccessful, so a cut down method was performed until the peritoneal cavity was entered with the 5 mm trocar. The abdomen was insufflated with approximately 2 L of CO2 gas and under direct visualization, a 5 mm trocar was placed in the left lower quadrant. The patient was placed in steep Trendelenburg and the bowel was swept away with an atraumatic grasper. The Kleppinger was introduced into the peritoneal cavity and starting with the left fallopian tube, the left fallopian tube was completely cauterized greater than 3 cm using the Kleppinger. This was repeated on the right fallopian tube without any difficulty. Both tubes were inspected and felt to be completely occluded with the cauterization. The Kleppinger was removed. The 5 mm trocar was removed from the right lower quadrant under direct visualization and noted to be hemostatic. The camera was removed and the abdomen was deflated through the umbilical trocar. This trocar was then removed and both incisions were closed with 4-0 Vicryl. The patient tolerated the procedure well. Sponge, lap and needle counts were correct x2. The Hulka clamp was removed from the vagina without difficulty and the patient was taken to recovery in stable condition. DICTATING PHYSICIAN: SHARLA PATTEN M.D. [id number] PHY#: [id number] ID: [id number] JOB#: [id number] ACCT: [id number] cc:SHARLA PATTEN M.D. >
[2018-02-25 11:51] VITALS: BP 162/97
[2018-02-25] MEDS ORDERED: ROCURONIUM BROMIDE INJ 50 MG/5 ML VIAL IV ONE (15:59)
[2018-02-25] MEDS ORDERED: GLYCOPYRROLATE 1 MG/5 ML SYRINGE ONE (15:59)
[2018-02-25] MEDS ORDERED: NEOSTIGMINE METHYLSULFATE 10 MG/10 ML VIAL ONE (15:59)
[2018-02-25] MEDS ORDERED: SUCCINYLCHOLINE CHLORIDE INJ 200 MG/10 ML VIAL ONE (15:59)
[2018-02-25] MEDS ORDERED: KETOROLAC TROMETHAMINE 60 MG/2 ML SDV ONE (15:59)
[2018-02-25] MEDS ORDERED: DEXAMETHASONE SOD PHOSPHATE INJ 4 MG/1 ML VIAL ONE (15:59)
[2018-02-25] MEDS ORDERED: ONDANSETRON HCL INJ/PF 4 MG/2 ML SDV ONE (15:59)
== END 2018-02-25 11:30 | disposition home or self-care (01) ==
LOC: OROUT 05:27
PROVIDERS: ATTEND Obstetrics & Gynecology
DX: Z30.2 Encounter for sterilization (principal); Z01.818 Encounter for other preprocedural examination
CPT/HCPCS: 36415; 85027; 81005; 81025; 58670; J2250; J3490 ×3; J1100; J1885; J3010; J0330; J2405; J2704; J0131; 851

== ENCOUNTER 2020-02-21 20:50 | Emergency (ER) | payer SELFPAY ==
--- NOTE | 2020-02-21 22:06 | ER Document Report ---
ED General - General Stated Complaint: SORE THROAT/HEADACHE/CHILLS Time Seen by Provider: 02/21/20 22:05 Primary Care Provider: EHSAN STEARNS MD [Primary Care Provider] - Follow up as needed Mode of Arrival: Ambulatory Information source: Patient TRAVEL OUTSIDE OF THE [place] 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 He symptoms started around 1500 and they have gradually worsened. The patient has some mild pain with swallowing but she denies trouble breathing, cough, congestion, runny nose. The patient denies known sick contacts or recent travel. - Related Data Allergies/Adverse Reactions: No Known Allergies Allergy (Verified 02/22/18 11:20) Past Medical History - General Information source: Patient - Social History Smoking Status: Never Smoker Frequency of alcohol use: None Drug Abuse: None Family History: DM, Hypertension, Malignancy - Past Medical History Cardiac Medical History: Reports: Hx Hypertension Denies: Hx Coronary Artery Disease, Hx Heart Attack Pulmonary Medical History: Denies: Hx Asthma, Hx Bronchitis, Hx COPD, Hx Pneumonia Neurological Medical History: Denies: Hx Cerebrovascular Accident, Hx Seizures Renal/ Medical History: Denies: Hx Peritoneal Dialysis Musculoskeletal Medical History: Denies Hx Arthritis Skin Medical History: Reports Hx Cellulitis - Immunizations Hx Diphtheria, Pertussis, Tetanus Vaccination: Yes Review of Systems - Review of Systems Constitutional: No symptoms reported, Fever EENT: Throat pain Cardiovascular: No symptoms reported Respiratory: No symptoms reported Gastrointestinal: No symptoms reported Genitourinary: No symptoms reported Female Genitourinary: No symptoms reported Musculoskeletal: No symptoms reported Skin: No symptoms reported Hematologic/Lymphatic: No symptoms reported Neurological/Psychological: No symptoms reported -: Yes All other systems reviewed and negative Physical Exam - Vital signs Vitals: Temp Pulse Resp BP Pulse Ox 99.2 F 81 18 153/105 H 98 02/21/20 20:59 02/21/20 20:59 02/21/20 20:59 02/21/20 20:59 02/21/20 20:59 - Notes Notes: GENERAL: Well-appearing, well-nourished and in no acute distress. HEAD: Atraumatic, normocephalic. EYES: Pupils equal round and reactive to light, extraocular movements intact, sclera anicteric, conjunctiva are normal. ENT: External ears normal, nares patent, oropharynx clear without exudates. Uvula midline. No tonsilar swelling or exudates. Moist mucous membranes. NECK: Normal range of motion, supple without lymphadenopathy or JVD. LUNGS: Breath sounds clear to auscultation bilaterally and equal. No wheezes rales or rhonchi. HEART: Regular rate and rhythm without murmurs, rubs or gallops. ABDOMEN: Soft, nontender, normoactive bowel sounds. No guarding, no rebound. No masses appreciated. EXTREMITIES: Normal range of motion, no pitting or edema. No clubbing or cyanosis. NEUROLOGICAL: Cranial nerves II through XII grossly intact. Normal speech, normal gait. PSYCH: Normal mood, normal affect. SKIN: Warm, Dry, normal turgor, no rashes or lesions noted. Course - Re-evaluation Re-evalutation: 02/21/20 22:53 The patient is here for viral like symptoms (fevers, chills, body aches, sore throat). She tested negative for Strep Throat. Patient was offered a COVID19 test but she declined. Patient was given strict ER return instructions for trouble breathing or shortness of breath. Patient told to use Tylenol, Motrin, and Salt Water Rinses. - Vital Signs Vital signs: Temp Pulse Resp BP Pulse Ox 99.2 F 81 20 153/105 H 100 02/21/20 21:02 02/21/20 21:02 02/21/20 21:02 02/21/20 21:02 02/21/20 21:02 Discharge - Discharge Clinical Impression: Sore throat, Viral syndrome Condition: Stable Disposition: HOME, SELF-CARE Additional Instructions: Use Tylenol and Motrin for sore throat and fevers. Also try using salt water rinses. Your rapid Strep Throat test was negative but your Throat Culture for Strep which takes 48 hours is pending. Follow up with your primary care doctor or one of the doctors listed in your discharge paperwork if your symptoms persist. Referrals: EHSAN STEARNS MD [Primary Care Provider] - Follow up as needed
[2020-02-21 23:50] VITALS: BP 140/87
== END 2020-02-21 23:49 | disposition home or self-care (01) ==
LOC: ER 20:50
DX: J02.9 Acute pharyngitis, unspecified (principal); B34.9 Viral infection, unspecified; R50.9 Fever, unspecified; I10 Essential (primary) hypertension
CPT/HCPCS: 87070; 87880; 99283